=== PATIENT | female | born 2005 | race Caucasian/White ===

== ENCOUNTER 2025-01-03 04:33 | Emergency (ER) | payer OTHER, SELFPAY ==
[2025-01-03 04:35] VITALS: BP 120/80
[2025-01-03 04:47] VITALS: BMI 19.3
--- NOTE | 2025-01-03 04:51 | EDRN ---
Pt's says pt complains of pain RLQ that started last night around 2300. Pt went to sleep and woke around 0400 to feed 6 month old baby. Pain worse at that time. Pain waxes and wanes, worse when pt moves around or gets up, lessens while on
stretcher. No radiation of pain, urinary symptoms, n/v/d/c, fever/chills/cough. Pt took 1000mg tylenol prior to coming to ED which have not helped yet. Pt had appendectomy. Pt had same pain this past summer for which she took tylenol, went to
sleep and when she woke she felt fine.
--- NOTE | 2025-01-03 05:05 | ED.GENMED ---
History of Present Illness
General
Chief Complaint: Abdominal Pain
Source: patient and spouse
Exam Limitations: none (Patient does not speak Iranian. Her primary language is French. Her is interpreting for her)
Time Seen by Provider: 01/03/25 04:49
Nursing documentation reviewed up to this point in time: agreed with
History of Present Illness
History of Present Illness:
The patient is a 19-year-old female who presents with lower abdominal pain that began around 11:00 PM last night. She has a history of an appendectomy. The pain worsens with movement and is alleviated somewhat when lying down. She reports taking 1
gram of acetaminophen (Tylenol) without significant relief. The pain does not appear to be radiating. She denies back pain or flank pain. The pain began suddenly around 11 PM when she quickly got up from the couch to attend to her crying .
The patient denies any nausea, vomiting, diarrhea, or constipation. She had a recent bowel movement and reports no urinary symptoms, fever, chills, or cough.
The patient mentions experiencing similar pain in the summer, which resolved on its own without evaluation or treatment. Currently, she is actively a [id number]-hvokc-abe infant and had her last menstrual period at the beginning of December.
Past History
Past History
ED Past Medical History: None
ED Past Surgical History: Appendectomy
Social History
Tobacco: Non-smoker
Alcohol: None
Drug: None
Personal:
Living: with family
Employment: Not employed
Family History
Family History: Other (Noncontributory)
Phy Exam
Physical Exam
Physical Exam:
GENERAL: 19-year-old female appears her stated age, bright and alert, pleasant, appears in no acute distress. is accompanying. He is interpreting for his . Vital signs within normal limits.
EYE: anicteric
NECK: Supple, nontender, no meningismus, no significant adenopathy.
ENT: oral mucosa is moist. No rhinorrhea.
CARDIAC: Regular rate and rhythm. no murmur.
LUNGS: Clear breath sounds bilaterally, no acute respiratory distress, no wheezes/rales/rhonchi
ABDOMEN: Soft, nondistended, mild tenderness right suprapubic suprapubic as well as lower right lower quadrant region, no r/g, no cvat. normoactive BS. No palpable masses.
NEUROLOGICAL: Alert and oriented x3, no focal neuro deficits. Gait is steady.
SKIN: Warm and dry, normal color, skin intact. No rash.
MUSCULOSKELETAL: No C/C/E. peripheral pulses are full and equal b/l. No palpable tenderness.
PSYCH: Normal and appropriate interaction.
Course
Orders/Labs/Results
Orders:
Orders
01/03/25 04:49
IV Insert/Care/Rem.- Treatment PRN
Test Result ONCE
01/03/25 04:50
Complete Blood Count/With Diff Urgent
Comprehensive Metabolic Panel Urgent
HCG, Serum Qualitative Screen Urgent
Comment: Notify provider if positive test present
Lipase Urgent
01/03/25 05:03
US Pelvis Only (non-obstetric) Urgent
Reason For Exam: acute R pelvic pain
01/03/25 05:04
Urinalysis Reflex To Culture Urgent
0.9% Sodium Chloride 1000 ml [Nss] 1,000 ml IV BOLUS
Ketorolac [Toradol] 15 mg IV NOW STA
01/03/25 06:10
CT Abd/pelvis W Iv Cont Urgent
Comment:
Reason For Exam: acute RLQ pain
Abnormal Lab Results
01/03/25
04:50
Hgb 11.9 L g/dL
(12.0-16.0)
Hct 35.1 L %
(37.0-47.0)
Absolute Lymphs (auto) 4.4 H 10^3/uL
(1.2-3.4)
Absolute Monos (auto) 0.7 H 10^3/uL
(0.1-0.6)
BUN 18 H mg/dl
(7-17)
Glucose 103 H mg/dl
(70-99)
01/03/25 04:50
01/03/25 04:50
Vital Signs
Initial and Last Documented VS:
Initial Vital Signs
Temp Pulse Resp BP Pulse Ox
98 F 94 20 120/80 97
01/03/25 04:35 01/03/25 04:35 01/03/25 04:35 01/03/25 04:35 01/03/25 04:35
Last Documented Vital Signs
Temp Pulse Resp BP Pulse Ox
98 F 79 16 114/72 98
01/03/25 04:35 01/03/25 05:39 01/03/25 05:39 01/03/25 05:39 01/03/25 05:39
MDM/Problems Addressed
Differential Diagnosis Includes:
The Differential Diagnosis includes, in no particular order and is not limited to:
1. Ovarian cyst.
2. Ovarian torsion.
3. Urinary tract infection.
4. Pelvic inflammatory disease.
5. Endometriosis.
6. Gastroenteritis.
7. Irritable bowel syndrome.
8. Diverticulitis.
9. Kidney stone.
10. Ectopic .
11. Small bowel obstruction
MDM/Problems Addressed:
Acute right lower quadrant pain
Overall well in appearance. Afebrile with normal vital signs.
Reproducible abdominal pain appears quite low with the pelvis, suprapubic and right pelvic region. Concern for ovarian cyst, ovarian torsion. PID is much less likely.
She has not missed period but early /ectopic is also a possibility.
Will medicate for pain with an IV dose of Toradol
Will check labs including hCG, urinalysis
Will plan for pelvic ultrasound with transvaginal ultrasound.
If inconclusive, could consider CT of the abdomen and pelvis.
Chronic conditions affecting care:
Currently breast-feeding her 6-month-old infant
Chronic conditions affecting care: Previous abdomnial surgery (Appendectomy)
*Radiology
Radiology exam reviewed: radiology read reviewed
*Pulse Oximetry
SaO2: 97
Oxygen Mode of Delivery: Room air
Patient hypoxic: no
*Critical Care Note
Total Time (30-74mins, 75-104mins- exclusive of procedures): Not Applicable
Update Note
Update Note:
06:15
Labs are unremarkable. hCG is negative.
Pelvic ultrasound is unremarkable. Bilateral ovaries are normal in appearance and vascularity. No suspicious adnexal masses. Trace, likely physiologic pelvic free fluid. Uterus is normal in appearance.
Urinalysis is pending.
Patient reports improvement in pain after IV Toradol. She continues with mild tenderness right lower quadrant with deep palpation only and continues with increased pain with movement, sitting up.
states pain began suddenly at 11 PM after she got up quickly from the couch to attend to her baby was crying.
She may have suffered a abdominal wall muscle strain. With prior history of appendectomy, must also consider early small bowel obstruction thus we will check CT abdomen and pelvis.
If CT unremarkable, I suspect an abdominal wall muscle strain and recommend continuing with NSAIDs. May also add local warm compresses. Avoidance of heavy lifting.
ED Attending Note
-
Portions of this chart may have been created with voice recognition software.� Occasional wrong word or��sound alike� substitutions may have occurred due to the inherent limitations of voice recognition software.
Discharge Plan
Departure
Patient with high blood pressure during this ER visit?: No
Condition: Good
Discharge Problem:
Acute abdominal pain in right lower quadrant
Instructions: Abdominal Muscle Strain (DC), Abdominal Pain
Prescriptions:
New
ibuprofen 400 mg tablet
400 mg PO Q6H PRN (Reason: Pain) Qty: 20 0RF
No Action
Calcium + Vitamin D
1 cap PO DAILY
collagen
1 tsp PO DAILY
Interventions
Interventions:
*Risk Screen - Suicide Last Done: 01/03/25 04:35
*General Assessment Last Done: 01/03/25 04:47
*Neglect/Abuse Screening Last Done: 01/03/25 04:35
*ED- Fall Risk Assessment Last Done: 01/03/25 04:55
*ED COVID-19 Vaccine History Last Done: 01/03/25 04:49
*ED Influenza Vaccine History Last Done: 01/03/25 04:49
RQ-[id number]-[id number] Assessment Last Done: 01/03/25 04:57
Discharge Date and Time
Print Language: NAMIBIAN
[2025-01-03] MEDS: NSS 1000 IV (05:08)
[2025-01-03] MEDS: TORADOL 15 MG IV (05:08)
[2025-01-03 05:11] LABS: Hematocrit 35.1 % (37.0-47.0); Hemoglobin 11.9 g/dL (12.0-16.0); Mean Corp Hgb Conc. 33.9 g/dL (33.0-37.0); Mean Corpuscular Volume 81.3 fL (81.0-99.0); Nucleated Red Blood Cells % 0 %; Platelet Count 302 10^3/uL (130-400); Red Cell Dist. Width 12.6 % (11.5-14.5)
[2025-01-03 05:13] LABS: HCG, Serum Qualitative Screen Negative
[2025-01-03 05:17] LABS: ALT (SGPT) 15 U/L (0-35); AST (SGOT) 18 U/L (14-36); Albumin 4.0 g/dl (3.5-5.0); Alkaline Phosphatase 108 U/L (38-126); Blood Urea Nitrogen 18 mg/dl (7-17); Calcium 9.1 mg/dl (8.4-10.2); Carbon Dioxide 25 mmol/L (22-30); Chloride 107 mmol/L (98-107); Estimated Creatinine Clearance 123 ml/min; Glucose 103 mg/dl (70-99); Lipase 159 U/L (23-300); Potassium 4.0 mmol/L (3.5-5.1); Sodium 138 mmol/L (135-145); Total Protein 6.5 g/dl (6.3-8.2); eGFR > 60.00
[2025-01-03 05:39] VITALS: BP 114/72
[2025-01-03 06:53] VITALS: BP 118/75
[2025-01-03 07:15] LABS: Urine Character Clear (Clear)
== END 2025-01-03 07:56 | disposition home or self-care (01) ==
LOC: EMR 04:33
PROVIDERS: EMERGENCY PHYSICIAN Emergency Medicine
DX: R10.31 Right lower quadrant pain (principal); Z90.49 Acquired absence of other specified parts of digestive tract
CPT/HCPCS: 99284; 96374; 96361; 74177; 76856; 80053; 81003; 83690; 84703; 85025; Q9967